=== PATIENT | female | born 1960 | race Native Hawaiian/Other Pacific Islander ===

== ENCOUNTER 2017-05-28 09:08 | Emergency (ER) | payer OTHER ==
[~2017-05-28] VITALS: Ht 162.6 cm; Wt 72.6 kg
[2017-05-28 09:24] VITALS: TEMP 98.2
[2017-05-28 09:35] LABS: PLATELET COUNT 216 K/uL (152-353)
[2017-05-28 09:47] LABS: POTASSIUM 3.7 mmol/L (3.6-5.2); SODIUM 138 mmol/L (136-145)
[2017-05-28 10:58] LABS: PARTIAL THROMBOPLASTIN TIME 26.5 SECONDS (24.5-33.6)
[2017-05-28 12:45] VITALS: BP 129/76
== END 2017-05-28 13:07 | disposition short-term general hospital (02) ==
LOC: ED 09:08
PROVIDERS: Specialist
DX: R07.89 Other chest pain (principal)
CPT/HCPCS: 36415; 80053; 82550; 84484; 85027; 85610; 85730; 93005; 96365; 96368; 96375; 99284; J1644; J2270; J2405; J3490

== ENCOUNTER 2017-05-28 13:11 | Outpatient (CLI) | payer OTHER | END 2017-05-28 13:47 | disposition short-term general hospital (02) | LOC: AMB 13:11 | DX: R07.89 Other chest pain (principal) | CPT/HCPCS: A0425; A0427 ==

== ENCOUNTER 2020-01-09 12:13 | Emergency (ER) | payer OTHER | END 2020-01-09 13:48 | disposition home or self-care (01) | LOC: ED 12:13 | DX: S20.212A Contusion of left front wall of thorax, initial encounter (principal); X58.XXXA Exposure to other specified factors, initial encounter; Y92.89 Other specified places as the place of occurrence of the external cause | CPT/HCPCS: 96372; 99283 ==

== ENCOUNTER 2020-05-05 14:15 | Outpatient (CLI) | payer OTHER | END 2020-05-05 22:03 | disposition home or self-care (01) | LOC: INF 14:15 | PROVIDERS: ATTEND Internal Medicine Endocrinology, Diabetes & Metabolism | DX: Z23 Encounter for immunization (principal) | CPT/HCPCS: 96372 ==

== ENCOUNTER 2020-06-02 13:41 | Outpatient (CLI) | payer OTHER | END 2020-06-02 22:51 | disposition home or self-care (01) | LOC: INF 13:41 | PROVIDERS: ATTEND Internal Medicine Endocrinology, Diabetes & Metabolism | DX: Z23 Encounter for immunization (principal) | CPT/HCPCS: 96372 ==

== ENCOUNTER 2022-02-13 16:57 | Observation (INO) | payer OTHER ==
[~2022-02-13] VITALS: Ht 160 cm; Wt 83.2 kg
[2022-02-13] VITALS (8 sets, daily range): BP systolic 126–208; BP diastolic 70–99; TEMP 97.4–98.9; Ht 160 cm; Wt 83.2 kg
[2022-02-13 17:40] LABS: PLATELET COUNT 223 K/uL (152-353)
[2022-02-13 17:48] LABS: POTASSIUM 3.1 mmol/L (3.6-5.2); SODIUM 138 mmol/L (136-145)
[2022-02-14 03:51] VITALS: BP 129/68; TEMP 98.4
[2022-02-14 08:00] VITALS: BP 156/82; TEMP 98.8
[2022-02-14] MEDS ORDERED: AMLODIPINE BESYLATE PO (10:14)
[2022-02-14] MEDS ORDERED: METO25TA4 PO (10:15)
== END 2022-02-14 11:26 | disposition home or self-care (01) ==
LOC: ED 16:57 → MED/SURG 18:15
PROVIDERS: ADMIT Family Medicine; ATTEND Internal Medicine
DX: R07.89 Other chest pain (principal); I10 Essential (primary) hypertension; E87.6 Hypokalemia; Z72.0 Tobacco use; J44.9 Chronic obstructive pulmonary disease, unspecified; K21.9 Gastro-esophageal reflux disease without esophagitis
CPT/HCPCS: 36415; 80053; 82550; 84484; 85027; 85610; 85730; 87635; 93005; 96365; 96372; 99220; 99284; G0378; J1650; U0003

== ENCOUNTER 2022-02-16 00:46 | Observation (INO) | payer OTHER ==
[~2022-02-16] VITALS: Ht 160 cm; Wt 81.2 kg
[2022-02-16] VITALS (7 sets, daily range): BP systolic 107–167; BP diastolic 60–88; TEMP 97.8–98.9; Ht 160 cm; Wt 81.2 kg
[~2022-02-16 00:46] MED LIST: AMLODIPINE BESYLATE PO; METO25TA4 PO
[2022-02-16 01:40] LABS: PARTIAL THROMBOPLASTIN TIME 26.5 SECONDS (24.5-33.6); PLATELET COUNT 224 K/uL (152-353)
[2022-02-16 02:04] LABS: POTASSIUM 3.4 mmol/L (3.6-5.2)
[2022-02-16] MEDS ORDERED: PANTOPRAZOLE 40MG TA PO (09:57)
== END 2022-02-16 12:20 | disposition home or self-care (01) ==
LOC: ED 00:46 → MED/SURG 02:53
PROVIDERS: ADMIT Family Medicine; ATTEND Internal Medicine
DX: R07.89 Other chest pain (principal); I10 Essential (primary) hypertension; J44.9 Chronic obstructive pulmonary disease, unspecified; K21.9 Gastro-esophageal reflux disease without esophagitis
CPT/HCPCS: 36415; 80053; 82550; 84443; 84484; 85027; 85610; 85730; 87635; 93005; 96372; 96374; 99220; 99284; G0378; J1650; J2405; U0003